=== PATIENT | female | born 1980 | race Caucasian/White ===

== ENCOUNTER 2017-05-24 09:37 | Emergency (ER) | payer OTHER, SELFPAY ==
[2017-05-24 09:37] VITALS: BP 115/62; PULSE 90; RESP 22; TEMP 36.8; O2SAT 100
[2017-05-24 10:36] LABS: Blood Gas Specimen Type VEN; Time Given 1025; VBG BASE EXCESS 8 mmol/L (-1.0-3.5); VBG Bicarbonate 32 mmol/L (22-26); VBG Oxygen Content 33 mmol/L (23-33); VBG PO2 19 mmHg (25-40); VBG SO2 31 % (50-70); VBG pCO2 45.2 mmHg (41-51); VBG pH 7.46 (7.32-7.42)
[2017-05-24 10:38] LABS: Anion Gap 8 (5-15); BUN 16 mg/dL (7-18); BUN/Creat Ratio 16.5 RATIO (10-20); Chloride 105 mmol/L (98-107); Creatinine, Serum 0.97 mg/dL (0.55-1.02); EST Glomerular Filtration Rate 68 mL/min (>60); Est Glom Filt Rate - Afr Amer 83 mL/min (>60); Estimated Creatinine Clearance 55.75 ml/min; Glucose 140 mg/dL (74-106); Potassium 3.9 mmol/L (3.5-5.1); Sodium Level 140 mmol/L (136-145)
--- NOTE | 2017-05-24 10:40 | CPS ---
VENOUS BLOOD GAS
--- NOTE | 2017-05-24 13:19 | ED.DCSUM_ITS ---
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 She presents today with similar symptoms. She denies headache. She denies visual, ocular or auditory symptoms. She denies any chest pain. She denies any vomiting or diarrhea. She denies any urologic symptoms. She is on calcium supplements. Physical Examination: Patient appears anxious. Bilateral's Chvostek sign. Heart is regular without murmur, gallop or rub. Lungs are clear to auscultation with good movement bilaterally. Reflexes are brisk with 4 beats of clonus at the ankle. No Babinski sign. Motor is 5/5 and sensations intact. Cranial nerves II through XII are intact. Please read written note for complete detail. Test Results: Respiratory therapy was unable to obtain ABG. Patient refused any additional attempts. A VBG was obtained which reveals alkalosis. Electrode panel was obtained as well as albumin and is remarkable for a slight elevation glucose of 140. Emergency Department Course and Treatment: Will obtain an ABG to determine if patient has respiratory alkalosis and hyperventilating versus hypocalcemia. Treatment Plan: Patient symptoms have resolved. She was informed of her lab results. Disposition: Home with home-going instructions for hyperventilation syndrome Impression: Hyperventilation syndrome History of thyroidectomy secondary to papillary carcinoma This note was generated with [employer] dictation software. It may contain incorrect words, spelling, and punctuation that were not noted in review of the chart prior to signing ED Disposition - Plan for ED Patient: Disposition: Home or Assisted Living Chief Complaint: Abd Pain Instructions: ED Hyperventilation Syndrome Referrals: Nela Hemphill MD [Primary Care Provider] - As Needed
[2017-05-24 13:37] VITALS: BP 115/70; PULSE 75; PULSE 85; RESP 14; O2SAT 96
== END 2017-05-24 13:39 | disposition home or self-care (01) ==
PROVIDERS: Emergency Provider Emergency Medicine; Family Provider Family Medicine; PCP Family Medicine
DX: F45.8 Other somatoform disorders (principal); E89.0 Postprocedural hypothyroidism; E87.3 Alkalosis; R73.9 Hyperglycemia, unspecified; Z79.899 Other long term (current) drug therapy
CPT/HCPCS: 80048; 82040; 82803; 99285; J7030; A4216

== ENCOUNTER → 2017-07-03 09:50 | Outpatient (CLI) | payer OTHER, SELFPAY ==
[2017-07-03 10:31] LABS: Free T3 2.9 pg/mL (2.18-3.98); T4 Free Direct 0.94 ng/dL (0.76-1.46); Thyroid Stim Hormone (TSH) 0.07 uIU/mL (0.358-3.74)
[2017-07-10 08:16] LABS: HPV HC, High Risk Negative (Negative)
[2017-07-10 08:17] LABS: HPV Reflexed? YES, CHARGE PATIENT
== END ==
PROVIDERS: Family Provider Family Medicine; PCP Obstetrics & Gynecology; Visit Provider Internal Medicine Endocrinology, Diabetes & Metabolism
DX: C73 Malignant neoplasm of thyroid gland (principal)
CPT/HCPCS: 36415; 84439; 84443; 84481; 87624; 88175; G0145

== ENCOUNTER → 2017-08-23 09:58 | Outpatient (CLI) | payer OTHER, SELFPAY ==
[2017-08-23 10:47] LABS: Absolute Lymphocyte Count 1.17 X10^3/ul (0.83-4.51); Absolute Neutrophil Count 1.1 X10^3/uL (2.0-7.7); Basophil# 0.02 X10^3/uL; Basophil% 0.8 % (0-1); Eosinophil# 0.08 X10^3/uL; Eosinophils% 3.1 % (0-5); Hematocrit 42.4 % (37-47); Hemoglobin 14.2 g/dl (12.0-15.0); Lymphocyte # 1.17 X10^3/ul (4.0); Lymphocyte % 45.5 % (19-41); Mean Corp Hgb Conc 33.5 g/gl (32-36); Mean Corpuscular Hgb 30.3 pg (27.0-32.0); Mean Corpuscular Volume 90.4 fL (81-99); Monocyte# 0.24 X10^3/uL; Monocyte% 9.3 % (0-10); Neutrophil # 1.05 X10^3/uL (2.7-7.7); Neutrophil % 40.9 % (47-70); Platelet Count 217 K/mm3 (150-450); RBC Distribution Width CV 13.1 % (11.6-14.6); Red Blood Count 4.69 M/mm3 (4.2-5.4); White Blood Count 2.6 K/mm3 (4.4-11.0)
[2017-08-23 10:55] LABS: POSITIVE COUNT NO; POSITIVE DIFFERENTIAL NO; POSITIVE MORPHOLOGY NO
[2017-08-23 11:16] LABS: Vitamin D,25 Hydroxy 54.8 ng/mL (29.95-100.01)
[2017-08-23 11:27] LABS: ALB/GLOB Ratio 1.1 RATIO (0.9-2.4); AST(SGOT) 26 U/L (15-37); Alanine Aminotransfer ALT/SGPT 28 U/L (13-56); Albumin, Serum 3.9 g/dL (3.2-5.0); Alkaline Phosphatase 84 U/L (45-117); Anion Gap 5 (5-15); BUN 11 mg/dL (7-18); Calcium,Total 8.9 mg/dL (8.5-10.1); Chloride 103 mmol/L (98-107); EST Glomerular Filtration Rate 66 mL/min (>60); Est Glom Filt Rate - Afr Amer 80 mL/min (>60); Free T3 3.2 pg/mL (2.18-3.98); Globulin 3.4 g/dL (2.2-4.2); Glucose 83 mg/dL (74-106); Potassium 4.1 mmol/L (3.5-5.1); Protein, Total 7.3 g/dL (6.4-8.2); Sodium Level 139 mmol/L (136-145); T4 Free Direct 1.27 ng/dL (0.76-1.46); Thyroid Stim Hormone (TSH) 0.13 uIU/mL (0.358-3.74)
== END ==
PROVIDERS: Family Provider Family Medicine; PCP Family Medicine; Visit Provider Internal Medicine Endocrinology, Diabetes & Metabolism
DX: C73 Malignant neoplasm of thyroid gland (principal)
CPT/HCPCS: 36415; 80053; 82306; 84439; 84443; 84481; 85025

== ENCOUNTER → 2017-10-29 16:59 | Outpatient (CLI) | payer OTHER, SELFPAY ==
[2017-10-29 18:50] LABS: Free T3 3.2 pg/mL (2.18-3.98); T4 Free Direct 0.82 ng/dL (0.76-1.46); Thyroid Stim Hormone (TSH) 0.15 uIU/mL (0.358-3.74)
== END ==
PROVIDERS: Family Provider Family Medicine; PCP Family Medicine; Visit Provider Internal Medicine Endocrinology, Diabetes & Metabolism
DX: R73.03 Prediabetes (principal)
CPT/HCPCS: 36415; 84439; 84443; 84481

== ENCOUNTER 2017-11-06 15:50 | Emergency (ER) | payer OTHER, MEDICAID, SELFPAY ==
[2017-11-06 15:51] VITALS: BP 137/83; PULSE 112; RESP 18; TEMP 37; O2SAT 100; BMI 22.5
--- NOTE | 2017-11-06 16:33 | ED.DCSUM_ITS ---
History of Present Illness Chief Complaint: Abd Pain Informant: Patient Onset: Today Context: Onset with activity - lifting boxes, Sudden Onset Quality: sore/ache Location: umbilicus Current Severity: Mild Maximum Severity: Severe Worsened by: lifting Relieved by: lying down here in ER Associated Symptoms: nausea Narrative: Patient has a known hernia in her umbilicus, but she was hoping to wait until next year to get it repaired. She had it bulge out again today and simultaneously be acutely painful along with nausea after lifting a box at work 2 hrs [employer]. She could not get it to go back in with lying down at work. - Past Medical History (1) Status post total thyroidectomy Status: Chronic (2) Papillary carcinoma of thyroid Status: Suspected Past Medical History - Allergies and Home Meds Allergies/Adverse Reactions: Allergies No Known Allergies Allergy (Verified 11/06/17 15:50) Primary Care Physician: Nela Hemphill MD [Primary Care Provider] - Surgical History: tonsillectomy, - - section ?3. Thyroidectomy. Smoking Status: Former smoker Drugs: None - Family History Maternal Family History: Reports: COPD, Heart Disease Paternal Family History: Reports: No pertinent history Review of Systems All systems negative except as indicated Gastrointestinal: Reports: Abdominal pain, Nausea Physical Exam Vital Signs/Narrative: Vital Signs Temp Pulse Resp BP Pulse Ox 11/06/17 15:51 98.6 F 112 H 18 137/83 H 100 Inital Vital Signs reviewed: Yes General: Well nourished, Well developed, - - Well-appearing, NAD Head: Normocephalic, Atraumatic Cardiovascular: Regular rate, Regular rhythm, No murmurs Respiratory: No distress, CTA bilaterally, Chest nontender Abdomen: Soft, Nondistended, Normal bowel sounds, Tender - Very mild at umbilicus, where there is a palpable defect but no hernia or overlying erythema.. Negative for: Guarding, Rebound tenderness Skin: Normal color, No rash Neurological: Alert, Oriented x3, Cranial nerves II-XII grossly intact, Normal Strength, Normal Sensation, Normal Gait Psychological: Normal affect Diagnostic/Tx/Re-eval - Medical Decision Making Patient basically feels almost back to normal now. She states it is just a little sore and feels nothing like when the hernia was there. We discussed techniques to try at home if the bulge recurs before returning to the ER, but she is welcome to return if she is unable to get back in. Otherwise advised to follow-up with surgery as an outpatient. She plans to. She also asks for a note for work to restrict her lifting. I think that is reasonable. ED Disposition - Plan for ED Patient: Disposition: Home or Assisted Living Chief Complaint: Abd Pain Diagnosis: Umbilical hernia Instructions: Having Hernia Surgery: Patch Repair Referrals: Nela Hemphill MD [Primary Care Provider] - Noel Goodman MD [STAFF PHYSICIAN] - (or surgeon of your choice -- call for appt)
== END 2017-11-06 16:48 | disposition home or self-care (01) ==
LOC: ED 16:44
PROVIDERS: Emergency Provider Emergency Medicine; Family Provider Family Medicine; PCP Family Medicine
DX: K42.9 Umbilical hernia without obstruction or gangrene (principal); R11.0 Nausea; E89.0 Postprocedural hypothyroidism; Z87.891 Personal history of nicotine dependence; Z79.899 Other long term (current) drug therapy
CPT/HCPCS: 99282

== ENCOUNTER 2017-11-11 12:28 | Day surgery (SDC) | payer OTHER, MEDICAID, SELFPAY ==
[2017-11-11 13:02] VITALS: BP 108/69; PULSE 56; RESP 18; TEMP 36.9; O2SAT 100; BMI 22.3
[2017-11-11 13:54] LABS: Thyroid Stim Hormone (TSH) 0.17 uIU/mL (0.358-3.74)
[2017-11-11] MEDS: Cefazolin 2 GM in 0.9% Normal Saline 100 ML IV (15:07)
[2017-11-11] MEDS: Bupiv/Epi 0.5% Mpf 30 ML Vial (15:15)
--- NOTE | 2017-11-11 15:40 | PCM.DC.HER ---
Discharge Diet: Light diet - advance as tolerated Discharge Activity: Return to Normal Activity, May Not Drive - while taking narcotic pain meds., May Shower - with the bandage in place 1-2 days after surgery. Lifting Restrictions: 20 pounds for 2 weeks. Additional Activity Instructions:: Climbing stairs is fine, walking is encouraged. Sitting in bed may be uncomfortable. Sitting up using your lateral muscles (sitting up sideways) is usually more comfortable. Do not drive, work heavy equipment of sign legal documents for 24 hours. Pain medications may cause nausea, you should typically eat light foods as you take your pain medications. Pain medications may also cause constipation. If you have difficulty with this, discuss with your doctor. Call your doctor if your incision/area has: Continuous Slow Oozing, Sudden Increased Bleeding, Increased Pain/ Swelling, Increased Redness, Foul Smelling Discharge Call your doctor if you observe: Fever of 101 or Higher Suture Line Care: Avoid Pulling/Pushing, Avoid Pinching/Bending Change Dressing in (Days):: 3 - Leave steri-strips for 1 week. May protect with a guaze bandaid. Cleanse incision/area with: Keep Dressing Clean & Dry Allergies/Adverse Reactions: Allergies No Known Allergies Allergy (Verified 11/08/17 15:11) Medications to take at Discharge Levothyroxine [Synthroid] 50 mcg PO DAILY 11/06/17 Liothyronine Sodium [Cytomel] 5 mcg PO DAILY 11/06/17 polyethylene glycol 3350 17 gram oral powder packet 17 g PO QDAY 11/08/17 sennosides 8.6 mg-docusate sodium 50 mg tablet 1 tab PO BID PRN 11/08/17 Hydrocodone/Acetaminophen [[place] 5-325 Tablet] 1 - 2 each PO Q4H PRN PRN 7 Days #30 tablet 11/11/17 The following prescriptions were given: Hydrocodone/Acetaminophen [[place] 5-325 Tablet] 1 - 2 each PO Q4H PRN PRN 7 Days #30 tablet PRN Reason: Pain Primary Care Physician: Nela Hemphill MD [Primary Care Provider] - Test Results: Test results from this visit will be discussed in further detail at your follow-up appointment, if applicable. Please Follow Up With: Noel Goodman MD When: Please call to schedule 2 week follow up appointment. [phone]
--- NOTE | 2017-11-11 15:41 | PCM.OPRPT ---
Problem List (1) Umbilical hernia without obstruction and without gangrene Status: Acute Report of Operation Date of Procedure: 11/11/17 Pre-Operative Diagnosis: Umbilical hernia Post-Operative Diagnosis: Same Surgery/Procedure Performed:: Umbilical hernia repair Specimen's removed: None Description of Procedure: The patient was brought back to the operating room and MAC anesthesia was induced. The abdomen was prepped and draped in usual sterile fashion. A curvilinear incision was marked over the umbilicus and injected with lidocaine and Marcaine. Next the incision was made with a scalpel and this was deepened to the level of the anterior fascia. A hemostat was used to surround the umbilical stalk and a scalpel was used to remove it from the abdominal fascia. Next the hernia was identified and reduced. The hernia only measured 0.6 cm in diameter. This was closed with three 0 PDS sutures in an interrupted fashion. The umbilical stalk was then sutured back to the anterior fascia wall with a 3-0 Vicryl suture. Next the cavity was irrigated and suctioned dry. The incision was closed with interrupted 3-0 Vicryl sutures, Steri-Strips, and bandage. The patient tolerated the procedure well was taken to PACU in stable condition.
--- NOTE | 2017-11-11 15:44 | OP.PCM_ITS ---
Problem List (1) Umbilical hernia without obstruction and without gangrene Status: Acute Report of Operation Date of Procedure: 11/11/17 Pre-Operative Diagnosis: Umbilical hernia Post-Operative Diagnosis: Same Surgery/Procedure Performed:: Umbilical hernia repair Specimen's removed: None Description of Procedure: The patient was brought back to the operating room and MAC anesthesia was induced. The abdomen was prepped and draped in usual sterile fashion. A curvilinear incision was marked over the umbilicus and injected with lidocaine and Marcaine. Next the incision was made with a scalpel and this was deepened to the level of the anterior fascia. A hemostat was used to surround the umbilical stalk and a scalpel was used to remove it from the abdominal fascia. Next the hernia was identified and reduced. The hernia only measured 0.6 cm in diameter. This was closed with three 0 PDS sutures in an interrupted fashion. The umbilical stalk was then sutured back to the anterior fascia wall with a 3- 0 Vicryl suture. Next the cavity was irrigated and suctioned dry. The incision was closed with interrupted 3-0 Vicryl sutures, Steri-Strips, and bandage. The patient tolerated the procedure well was taken to PACU in stable condition.
[2017-11-11 15:45] VITALS: BP 103/80; BP 108/69; PULSE 77; RESP 16; TEMP 36.2; O2SAT 100
[2017-11-11 15:50] VITALS: BP 108/69; BP 98/56; PULSE 66; RESP 16; O2SAT 98
[2017-11-11 15:55] VITALS: BP 100/66; BP 108/69; PULSE 69; RESP 16; O2SAT 100
[2017-11-11 16:00] VITALS: BP 108/69; BP 96/64; PULSE 55; RESP 16; TEMP 36.7; O2SAT 100
[2017-11-11] MEDS: HYDROcodone Bitartrate/Apap 5/325 Tablet PO (16:32)
[2017-11-11 17:32] VITALS: BP 108/69
== END 2017-11-11 17:37 | disposition home or self-care (01) ==
LOC: SDC 12:29 → AC 12:30
PROVIDERS: Family Provider Family Medicine; PCP Family Medicine; Visit Provider Surgery
PROC: (CPT 49585; principal; 2017-11-11 14:15)
DX: K42.9 Umbilical hernia without obstruction or gangrene (principal); K64.9 Unspecified hemorrhoids; E78.00 Pure hypercholesterolemia, unspecified; R73.03 Prediabetes; K21.9 Gastro-esophageal reflux disease without esophagitis; F32.9 Major depressive disorder, single episode, unspecified; F41.9 Anxiety disorder, unspecified; Z79.899 Other long term (current) drug therapy; Z85.850 Personal history of malignant neoplasm of thyroid; Z87.891 Personal history of nicotine dependence; Z86.718 Personal history of other venous thrombosis and embolism; Z87.19 Personal history of other diseases of the digestive system
CPT/HCPCS: 00830; 49585; 36415; 84443; J7120

== ENCOUNTER → 2018-01-25 10:34 | Outpatient (CLI) | payer OTHER, MEDICAID, SELFPAY ==
[2018-01-25 11:22] LABS: Hemoglobin A1c 5.5 % (4.2-6.3)
[2018-01-25 11:41] LABS: ALB/GLOB Ratio 1.1 RATIO (0.9-2.4); AST(SGOT) 21 U/L (15-37); Alanine Aminotransfer ALT/SGPT 21 U/L (13-56); Albumin, Serum 3.9 g/dL (3.2-5.0); Alkaline Phosphatase 85 U/L (45-117); Anion Gap 7 (5-15); BUN 14 mg/dL (7-18); BUN/Creat Ratio 14.2 RATIO (10-20); Calcium,Total 8.6 mg/dL (8.5-10.1); Chloride 102 mmol/L (98-107); Cholesterol 241 mg/dL (200); Creatinine, Serum 0.98 mg/dL (0.55-1.02); EST Glomerular Filtration Rate 67 mL/min (>60); Est Glom Filt Rate - Afr Amer 81 mL/min (>60); Free T3 4.6 pg/mL (2.18-3.98); Globulin 3.4 g/dL (2.2-4.2); Glucose 83 mg/dL (74-106); High Density Lipoprotein 100 mg/dL; Potassium 3.9 mmol/L (3.5-5.1); Protein, Total 7.3 g/dL (6.4-8.2); Sodium Level 137 mmol/L (136-145); T4 Free Direct 0.98 ng/dL (0.76-1.46); Thyroid Stim Hormone (TSH) 0.23 uIU/mL (0.358-3.74); Triglycerides 41 mg/dL; Very Low Density Lipoprotein 8 mg/dL (5-40)
[2018-01-28 14:51] LABS: Thyroglobulin Antibody < 1.0 IU/mL (0.0-0.9); Thyroid Peroxidase AB 10 IU/mL (0-34)
== END ==
PROVIDERS: Family Provider Family Medicine; PCP Family Medicine; Referring Provider Internal Medicine Endocrinology, Diabetes & Metabolism; Visit Provider Internal Medicine Endocrinology, Diabetes & Metabolism
DX: C73 Malignant neoplasm of thyroid gland (principal); E78.5 Hyperlipidemia, unspecified
CPT/HCPCS: 36415; 80053; 80061; 83036; 84439; 84443; 84481; 86376; 86800

== ENCOUNTER → 2018-07-07 15:50 | Outpatient (CLI) | payer OTHER, SELFPAY ==
[2018-07-11 13:29] LABS: HPV Reflexed? NOT INDICATED
== END ==
PROVIDERS: Family Provider Family Medicine; PCP Family Medicine; Visit Provider Obstetrics & Gynecology
DX: Z12.4 Encounter for screening for malignant neoplasm of cervix (principal)
CPT/HCPCS: 88175; G0145

== ENCOUNTER → 2019-01-17 12:01 | Outpatient (CLI) | payer MEDICAID, SELFPAY ==
[2019-01-17 12:39] LABS: Absolute Lymphocyte Count 1.22 X10^3/uL (0.83-4.51); Absolute Neutrophil Count 1.9 X10^3/uL (2.0-7.7); Basophil# 0.04 X10^3/uL; Basophil% 1.1 % (0-1); Eosinophil# 0.08 X10^3/uL; Eosinophils% 2.3 % (0-5); Hematocrit 42.8 % (37-47); Hemoglobin 13.9 g/dL (12.0-15.0); Lymphocyte # 1.22 X10^3/ul (4.0); Lymphocyte % 34.9 % (19-41); Mean Corp Hgb Conc 32.5 g/dL (32-36); Mean Corpuscular Hgb 29.7 pg (27.0-32.0); Mean Corpuscular Volume 91.5 fL (81-99); Mean Platelet Vol. 10.6 fl (6.2-12.0); Monocyte# 0.26 X10^3/uL; Monocyte% 7.4 % (0-10); NRBC Flagged by Analyzer 0 % (0-5); Neutrophil # 1.89 X10^3/uL (2.7-7.7); Platelet Count 221 K/mm3 (150-450); RBC Distribution Width CV 13.3 % (11.6-14.6); RBC Distribution Width SD 45.1 fl (35.1-43.9); Red Blood Count 4.68 M/mm3 (4.2-5.4); White Blood Count 3.5 K/mm3 (4.4-11.0)
[2019-01-17 12:42] LABS: Erythrocyte Sedimentation Rate 10 mm/hr (0-20)
[2019-01-17 13:11] LABS: Homocysteine 7.4 umol/L (3.2-10.7)
[2019-01-17 13:13] LABS: CRP 3.39 mg/L (0.0-3.0); Rheumatoid Factor < 10.0 IU/mL (<15)
[2019-01-19 09:20] LABS: Vitamin B12 469 pg/mL (211-911)
[2019-01-19 20:52] LABS: ANTINUCLEAR ANTIBODIES DIRECT Negative (Negative)
== END ==
PROVIDERS: Family Provider Family Medicine; PCP Family Medicine; Referring Provider Internal Medicine Endocrinology, Diabetes & Metabolism; Visit Provider Internal Medicine Endocrinology, Diabetes & Metabolism
DX: R22.9 Localized swelling, mass and lump, unspecified (principal); E03.9 Hypothyroidism, unspecified
CPT/HCPCS: 36415; 82607; 82746; 83090; 85025; 85652; 86038; 86140; 86431

== ENCOUNTER → 2019-01-30 15:02 | Outpatient (CLI) | payer MEDICAID, SELFPAY ==
--- NOTE | 2019-01-30 15:07 | ECHOD_ITS ---
Reason For Study: PALPITATIONS, FATIGUE Procedure This was a 2D Doppler, Color Flow transthoracic echocardiogram. Exam performed in department. Left Ventricle Normal LV size. Left ventricular systolic function is normal. The estimated ejection fraction is 60 %. Normal diastology for age. No regional wall motion abnormalities noted. Right Ventricle Normal RV size. Normal systolic function. Atria Normal left atrium. Normal right atrium. Mitral Valve Normal mitral valve. Tricuspid Valve Normal tricuspid valve. Mild tricuspid valve insufficiency. Pulmonary artery systolic pressure is 22 mmHg. Aortic Valve Normal aortic valve. Trisinus/trileaflet aortic valve. Pulmonic Valve Normal pulmonic valve. Great Vessels Normal aortic root. The pulmonary artery is normal size. Normal inferior vena cava. Pericardium/Pleural No pericardial effusion. MMode/2D Measurements & Calculations LVIDd: 4.3 cm IVSd: 0.70 cm Ao root diam: 2.4 cm LVIDs: 2.6 cm LVPWd: 0.83 cm RVDd: 2.8 cm FS: 39.6 % LAV(MOD-bp): 43.1 ml LA A4 area: 14.8 cm2 LA dimension(2D): 3.1 cm LAV(MOD-bp) Indexed: 28.5 ml/m2 LAV(MOD-sp2): 41.7 ml LAV(MOD-sp4): 41.7 ml RA A4 area: 11.8 cm2 Time Measurements MV dec time: 0.18 sec Doppler Measurements & Calculations MV E max simon: 103.9 cm/sec Lat Peak E' Simon: 13.6 cm/sec Med Peak E' Simon: 10.7 cm/sec MV A max simon: 74.7 cm/sec E/E' lat: 7.6 E/E' med: 9.7 MV E/A: 1.4 Ao V2 max: 112.6 cm/sec LV V1 max: 93.4 cm/sec PA V2 max: 76.9 cm/sec Ao max P.1 mmHg LV V1 max P.5 mmHg TR max simon: 215.2 cm/sec TR max P.6 mmHg Interpretation Summary Normal LV size. Left ventricular systolic function is normal. The estimated ejection fraction is 60 %. Normal diastology for age. Pulmonary artery systolic pressure is 22 mmHg. Ordering Physician: Tierra York Referring Physician: Jose Breen Performed By: Mireille Barkley RDCS, RVT
== END ==
PROVIDERS: Family Provider Family Medicine; PCP Family Medicine; Referring Provider Internal Medicine Endocrinology, Diabetes & Metabolism; Visit Provider Internal Medicine Endocrinology, Diabetes & Metabolism
DX: R00.2 Palpitations (principal); R53.83 Other fatigue
CPT/HCPCS: 93306

== ENCOUNTER → 2019-11-07 11:35 | Outpatient (CLI) | payer MEDICAID, SELFPAY ==
[2019-11-07 12:38] LABS: Hemoglobin A1c 5.7 % (3.8-5.6)
[2019-11-07 12:40] LABS: ALB/GLOB Ratio 1.2 RATIO (0.9-2.4); AST(SGOT) 14 U/L (15-37); Alanine Aminotransfer ALT/SGPT 14 U/L (13-56); Alkaline Phosphatase 73 U/L (45-117); Anion Gap 3 (5-15); BUN 8 mg/dL (7-18); BUN/Creat Ratio 9.1 RATIO (10-20); Calcium,Total 8.9 mg/dL (8.5-10.1); Chloride 107 mmol/L (98-107); Cholesterol 243 mg/dL (200); Creatinine, Serum 0.88 mg/dL (0.55-1.02); EST Glomerular Filtration Rate 76 mL/min (>60); Est Glom Filt Rate - Afr Amer 92 mL/min (>60); Globulin 3.4 g/dL (2.2-4.2); Glucose 89 mg/dL (74-106); High Density Lipoprotein 77 mg/dL; Potassium 4.2 mmol/L (3.5-5.1); Protein, Total 7.4 g/dL (6.4-8.2); Sodium Level 138 mmol/L (136-145); Thyroid Stim Hormone (TSH) 0.72 uIU/mL (0.358-3.74); Triglycerides 84 mg/dL; Very Low Density Lipoprotein 17 mg/dL (5-40)
[2019-11-09 08:17] LABS: Vitamin D,25 Hydroxy 55.4 ng/mL
[2019-11-09 16:08] LABS: Thyroid Peroxidase AB < 9 IU/mL (0-34)
[2019-11-09 17:35] LABS: Thyroglobulin Antibody < 1.0 IU/mL (0.0-0.9)
[2019-11-09 21:11] LABS: Anti-Thyroglobulin AB < 1.0 IU/mL (0.0-0.9); Thyroglobulin, Serum Qt. 0.1 ng/mL (1.5-38.5); Thyroid Peroxidase AB < 9 IU/mL (0-34)
== END ==
PROVIDERS: PCP Family Medicine; Referring Provider Internal Medicine Endocrinology, Diabetes & Metabolism; Visit Provider Internal Medicine Endocrinology, Diabetes & Metabolism
DX: C73 Malignant neoplasm of thyroid gland (principal); E78.00 Pure hypercholesterolemia, unspecified; E03.9 Hypothyroidism, unspecified; E55.9 Vitamin D deficiency, unspecified; E28.319 Asymptomatic premature menopause
CPT/HCPCS: 36415; 80053; 80061; 82306; 83036; 84432; 84439; 84443; 84481; 86376; 86800

== ENCOUNTER → 2020-01-15 08:19 | Outpatient (CLI) | payer MEDICAID, SELFPAY | PROVIDERS: PCP Nurse Practitioner Primary Care; Referring Provider Internal Medicine Endocrinology, Diabetes & Metabolism; Visit Provider Internal Medicine Endocrinology, Diabetes & Metabolism | DX: C73 Malignant neoplasm of thyroid gland (principal); E03.9 Hypothyroidism, unspecified; R60.9 Edema, unspecified; E55.9 Vitamin D deficiency, unspecified; E28.319 Asymptomatic premature menopause | CPT/HCPCS: 36415; 82533 ==

== ENCOUNTER 2020-01-20 15:45 | Emergency (ER) | payer MEDICAID, SELFPAY ==
[2020-01-20 15:46] VITALS: BP 131/68; PULSE 70; RESP 16; TEMP 36.3; O2SAT 100; BMI 27.2
--- NOTE | 2020-01-20 15:55 | VDLE_ITS ---
Reason For Study: Pain RIGHT GSV is normal. CFV is compressible, spontaneous, phasic, competent and demonstrates normal augmentation. FV is compressible, spontaneous, phasic, competent and demonstrates normal augmentation. POP V is compressible, spontaneous, phasic, competent and demonstrates normal augmentation. T/P Trunk is compressible. PTV is compressible. RT PerV is compressible. Thrombus filled varicose vein noted in the right medial knee area. Procedure This is a venous duplex using B-mode, color flow and spectral Doppler. Exam performed portable in ED. A preliminary report was called and/or faxed to [facility]. Interpretation Summary There is no evidence of right lower extremity deep vein thrombosis. Superficial thrombophlebitis right medial knee varicose vein Patent and compressible right great saphenous vein Ordering Physician: London Keller Referring Physician: Noelle Munson Performed By: Aleah Up RVT
--- NOTE | 2020-01-20 16:02 | ED.DCSUM_ITS ---
History of Present Illness Chief Complaint: Lower Extremity Injury Informant: Patient Onset: Days Context: Gradual Onset Timing: Continuous Current Severity: Moderate Maximum Severity: Moderate Narrative: The patient is a 39-year-old female that presents to the emergency department with right posterior knee pain. She states she has a history of varicosities. She noticed a palpable lump behind her knee. She states that she had this a few years ago. She actually saw vascular surgery. She was told that she may need a vein stripping in the future. She states she noticed it recur. She talked to her primary care, but they cannot get her in to be seen. She states that she was told to come to the emergency department. She denies any chest pain or shortness of breath. She denies any recent immobilization. Prior similar symptoms: Yes Recent Illness/Hospitalization: No Past Medical History - Allergies and Home Meds Allergies/Adverse Reactions: Allergies No Known Allergies Allergy (Verified 01/20/20 15:46) Primary Care Physician: Noelle Weber NP, DIRECTOR OF LOSS PREVENTION-C [Primary Care Provider] - Prior records reviewed: Yes Past Medical History: - - Thyroid disease, varicosities Surgical History: tonsillectomy, - - section ?3. Thyroidectomy. Smoking Status: Former smoker - Family History Maternal Family History: Family History (Last Updated 11/08/17 @ 13:51 by Lorrie Trevino) Mother Heart disease Hypertension Asthma Thyroid disorder Sister Thyroid disorder Father Colon cancer Family History: Reports: COPD, Heart Disease Paternal Family History: Family History (Last Updated 11/08/17 @ 13:51 by Lorrie Trevino) Mother Heart disease Hypertension Asthma Thyroid disorder Sister Thyroid disorder Father Colon cancer Family History: Reports: No pertinent history Review of Systems General: Denies: Chills, Fever, Sweats Eyes: Denies: Visual changes - bilaterally, Diplopia ENT: Denies: Rhinorrhea, Sore throat Cardiovascular: Denies: Chest pain, Palpitations Respiratory: Denies: Dyspnea, Cough, Dyspnea on exertion Gastrointestinal: Denies: Abdominal pain, Nausea, Vomiting, Diarrhea, Melena, Hematochezia Genitourinary: Denies: Dysuria, Hematuria, Frequency Musculoskeletal: Denies: Back pain, Extremity Pain Skin: Denies: Rash, Wounds Neurological: Denies: Headache, Weakness, Numbness Physical Exam Vital Signs/Narrative: Vital Signs Temp Pulse Resp BP Pulse Ox 01/20/20 15:46 97.3 F L 70 16 131/68 H 100 Inital Vital Signs reviewed: Yes General: Well nourished, Well developed, No Acute Distress Head: Normocephalic, Atraumatic Eyes: Perrl, EOMI ENT: Moist mucous membranes, No rhinorrhea Neck: Supple, Nontender Cardiovascular: Regular rate, Regular rhythm, No murmurs Respiratory: No distress, CTA bilaterally, Chest nontender Abdomen: Soft, Nontender, Nondistended, Normal bowel sounds Back: Nontender, Normal Inspection Extremities: No edema, Tenderness Skin: Normal color, No rash Neurological: Alert, Oriented x3, Cranial nerves II-XII grossly intact, Normal Strength, Normal Sensation Psychological: Normal affect, Normal Mood Diagnostic/Tx/Re-eval - Medical Decision Making The patient presents with a painful varicosity. Ultrasound was obtained of the lower extremity. There is no evidence of DVT. There is evidence of the superficial varicosity with thrombus. The patient has had this multiple times. She has no DVT, evidence of cellulitis, or vascular compromise. She will continue warm compresses and follow-up with vascular surgery as she had before. The patient will be discharged home. Impression 1. Right lower extremity varicosity ED Disposition - Plan for ED Patient: Instructions: ED Veins Varicose Referrals: Km Pollack MD [STAFF PHYSICIAN] -
[2020-01-20 16:52] VITALS: RESP 18
== END 2020-01-20 16:53 | disposition home or self-care (01) ==
LOC: ED 16:24
PROVIDERS: Emergency Provider Emergency Medicine; PCP Nurse Practitioner Primary Care
DX: I83.811 Varicose veins of right lower extremity with pain (principal); M25.561 Pain in right knee; E07.9 Disorder of thyroid, unspecified; Z79.899 Other long term (current) drug therapy; Z87.891 Personal history of nicotine dependence
CPT/HCPCS: 93971; 99281; 99283

== ENCOUNTER → 2020-01-23 10:06 | Outpatient (CLI) | payer MEDICAID, SELFPAY ==
--- NOTE | 2020-01-23 10:07 | BI_ITS ---
MAMMOGRAPHY - BILATERAL SCREENING REASON FOR EXAM: Female, 39 years old. Routine annual screening examination. PERTINENT HISTORY: Non-contributory. Past history of thyroid cancer treated with radiation. TECHNIQUE: Digital bilateral breast cristian (3D mammographic acquisition) in the CC and MLO projections. 2-D mediolateral oblique (MLO) and craniocaudad (CC) views of both breasts were obtained. CAD: Full Field Digital Mammography with Computer Added Detection was performed. COMPARISON: None. Baseline examination. FINDINGS: Breast Composition: There are no dominant masses or suspicious calcifications. No other significant abnormalities are identified. BI/SCREEN MAMM (CAD) W/CRISTIAN BILAT IMPRESSION: Negative screening mammogram. Yearly followup mammogram recommended. (A) ASSESSMENT CATEGORY: BIRADS Category 1: Negative. A letter regarding these results will be sent to the patient by the facility within 30 days. Approximately 10% of breast cancers are not detected by mammography. A normal mammogram should not delay biopsy of a clinically suspicious abnormality. [id number] Electronically Signed: Candido Farris, at 9:30 EDT , Service support ,
== END ==
LOC: OPBI 07-27 00:28
PROVIDERS: PCP Nurse Practitioner Primary Care; Referring Provider Nurse Practitioner Primary Care; Visit Provider Nurse Practitioner Primary Care
DX: Z12.31 Encounter for screening mammogram for malignant neoplasm of breast (principal); Z85.850 Personal history of malignant neoplasm of thyroid; Z92.3 Personal history of irradiation
CPT/HCPCS: 77063; 77067

== ENCOUNTER → 2020-02-23 | Outpatient (CLI) | payer MEDICAID, SELFPAY ==
[2020-02-27 10:31] LABS: HPV APTIMA, High Risk Negative (Negative); HPV Reflexed? YES, CHARGE PATIENT
== END | disposition home or self-care (01) ==
LOC: LABSPEC 15:33
PROVIDERS: PCP Nurse Practitioner Primary Care; Visit Provider Student in an Organized Health Care Education/Training Program
DX: Z12.4 Encounter for screening for malignant neoplasm of cervix (principal)
CPT/HCPCS: 87624; 88175; G0145

== ENCOUNTER → 2020-03-21 15:23 | Outpatient (CLI) | payer MEDICAID, SELFPAY ==
[2020-03-21 18:22] LABS: LDH 177 U/L (84-246)
[2020-03-21 18:25] LABS: hCG Titer Quant., Serum 5 mIU/mL (1-3)
[2020-03-23 15:23] LABS: Cancer Antigen 125 5.6 U/mL (0.0-38.1); Carcinoembryonic Antigen 2.8 ng/mL (0.0-4.7)
== END ==
PROVIDERS: PCP Nurse Practitioner Primary Care; Visit Provider Student in an Organized Health Care Education/Training Program
DX: N83.209 Unspecified ovarian cyst, unspecified side (principal)
CPT/HCPCS: 36415; 82378; 83615; 84702; 86301; 86304

== ENCOUNTER → 2020-03-22 15:49 | Outpatient (CLI) | payer MEDICAID, SELFPAY ==
--- NOTE | 2020-03-22 15:52 | BD_ITS ---
STUDY: DUAL ENERGY X-RAY ABSORPTIOMETRY / DXA REASON FOR EXAM: Female, 39 years old. 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 COMPARISON: None. FINDINGS: Lumbar Spine (L1-L4): g/cm2 (1.014) / T-score (-1.4) / Z-score (-1.4) Findings are suggestive of osteopenia with a low fracture risk. Left Femur Total: g/cm2 (0.805) / T-score (-1.6) / Z-score (-1.4) Left Femoral Neck: g/cm2 (0.840) / T-score (-1.4) / Z-score (-1.0) Right Femur Total: g/cm2 (0.814) / T-score (-1.5) / Z-score (-1.3) Right Femoral Neck: g/cm2 (0.780) / T-score (-1.9) / Z-score (-1.4) BD/Dexa Bone Density Study IMPRESSION: The patient is considered osteopenic as outlined below according to World Arjun Organization (WHO) criteria with a moderate fracture risk. Reference Information: The T-score is the number of standard deviations above or below the standard which is normal for young adults at their peak bone mineral density. The World Health Organization (WHO) interprets the T-scores as follows: Above -1 Normal bone density Between -1 and -2.5 Osteopenia Equal to / or below -2.5 Osteoporosis As a practical clinical guideline, osteopenia may be graded as follows: Mild -1 through -1.5 Moderate -1.6 through -2.0 Severe -2.1 through -2.4 The Z-score is the number of standard deviations above or below age-matched controls. A Z-score of less than -1.5 would be considered abnormal. References: 1. NIH Osteoporosis and Related Bone Diseases www osteo.org 2. International Society for Clinical Densitometry www iscd.org 3. National Osteoporosis Foundation www nof.org Electronically Signed: Candido Farris, at 12:36 EST , Service support ,
== END ==
PROVIDERS: PCP Nurse Practitioner Primary Care; Referring Provider Student in an Organized Health Care Education/Training Program; Visit Provider Student in an Organized Health Care Education/Training Program
DX: Z13.820 Encounter for screening for osteoporosis (principal); M85.80 Other specified disorders of bone density and structure, unspecified site
CPT/HCPCS: 77080

== ENCOUNTER → 2020-05-07 10:21 | Outpatient (CLI) | payer MEDICAID, SELFPAY ==
[2020-05-07 11:08] LABS: Hemoglobin A1c 5.5 % (3.8-5.6)
[2020-05-07 11:32] LABS: AST(SGOT) 20 U/L (15-37); Alanine Aminotransfer ALT/SGPT 18 U/L (13-56); Albumin, Serum 3.5 g/dL (3.2-5.0); Alkaline Phosphatase 77 U/L (45-117); Anion Gap 5 (5-15); BUN 13 mg/dL (7-18); Calcium,Total 8.6 mg/dL (8.5-10.1); Chloride 106 mmol/L (98-107); EST Glomerular Filtration Rate 65 mL/min (>60); Est Glom Filt Rate - Afr Amer 79 mL/min (>60); Globulin 3.4 g/dL (2.2-4.2); Glucose 88 mg/dL (74-106); Potassium 4.1 mmol/L (3.5-5.1); Protein, Total 6.9 g/dL (6.4-8.2); Sodium Level 140 mmol/L (136-145); T4 Free Direct 0.79 ng/dL (0.76-1.46); Thyroid Stim Hormone (TSH) 0.44 uIU/mL (0.358-3.74)
== END ==
PROVIDERS: PCP Nurse Practitioner Primary Care; Referring Provider Internal Medicine Endocrinology, Diabetes & Metabolism; Visit Provider Internal Medicine Endocrinology, Diabetes & Metabolism
DX: C73 Malignant neoplasm of thyroid gland (principal); E03.9 Hypothyroidism, unspecified; E28.319 Asymptomatic premature menopause; E55.9 Vitamin D deficiency, unspecified; R60.9 Edema, unspecified
CPT/HCPCS: 36415; 80053; 83036; 84439; 84443; 84481

== ENCOUNTER → 2020-09-13 13:34 | Outpatient (CLI) | payer MEDICAID, SELFPAY ==
--- NOTE | 2020-09-13 13:39 | VDLE_ITS ---
Reason For Study: Varicose veins RIGHT LEFT CFV is compressible, spontaneous, phasic, CFV is compressible, spontaneous, phasic, competent and demonstrates normal competent, and demonstrates normal augmentation. augmentation. FV is compressible, spontaneous, phasic, FV is compressible, spontaneous, phasic, competent and demonstrates normal competent and demonstrates normal augmentation. augmentation. POP V is compressible, spontaneous, phasic, POP V is compressible, spontaneous, phasic, competent and demonstrates normal competent and demonstrates normal augmentation. augmentation. T/P Trunk is compressible. T/P Trunk is compressible. PTV is compressible. PTV is compressible. RT PerV is compressible. LT PerV is compressible. SFJ is INCOMPETENT and measures 0.79 x 0.75 SFJ is INCOMPETENT and measures 0.73 x 0.65 cm. cm. GSV proximal thigh measures 0.69 x 0.69 cm. GSV proximal thigh measures 0.36 x 0.39 cm. GSV at knee measures 0.58 x 0.56 cm. GSV at knee measures 0.21 x 0.19 cm. GSV INCOMPETENT throughout for greater than GSV INCOMPETENT throughout for greater than 0.5 seconds. 0.5 seconds. SSV at junction is competent and measures ASV from junction is INCOMPETENT for greater 0.18 x 0.18 cm. than 0.5 seconds and measures 0.23 x 0.24 cm. Procedure SSV proximal calf is competent and measures This is a venous duplex using B-mode, color 0.11 x 0.11 cm. flow and spectral Doppler. Exam performed in department. VL/Venous Duplex US - Prince Extrem Interpretation Summary Bilateral legs with no DVT or SVT noted. Right GSV 7 mm with reflux throughout. Left GSV 4 mm with reflux throughout. Left ASV 2.5 mm with reflux at the junction. Ordering Physician: Km Pollack Referring Physician: Noelle Weber Performed By: Aleah Up RVT
== END ==
PROVIDERS: PCP Nurse Practitioner Primary Care; Referring Provider Surgery Vascular Surgery; Visit Provider Surgery Vascular Surgery
DX: M79.89 Other specified soft tissue disorders (principal); I83.813 Varicose veins of bilateral lower extremities with pain; E78.00 Pure hypercholesterolemia, unspecified; I34.1 Nonrheumatic mitral (valve) prolapse; E07.9 Disorder of thyroid, unspecified; M79.606 Pain in leg, unspecified
CPT/HCPCS: 93970

== ENCOUNTER → 2020-11-19 10:02 | Outpatient (CLI) | payer MEDICAID, SELFPAY ==
[2020-11-19 11:20] LABS: AST(SGOT) 15 U/L (15-37); Alanine Aminotransfer ALT/SGPT 18 U/L (13-56); Albumin, Serum 3.7 g/dL (3.2-5.0); Alkaline Phosphatase 85 U/L (45-117); Anion Gap 3 (5-15); BUN 10 mg/dL (7-18); BUN/Creat Ratio 11.8 RATIO (10-20); Chloride 105 mmol/L (98-107); Cholesterol 238 mg/dL (200); Creatinine, Serum 0.84 mg/dL (0.55-1.02); EST Glomerular Filtration Rate 79 mL/min (>60); Est Glom Filt Rate - Afr Amer 95 mL/min (>60); Free T3 3.3 pg/mL (2.18-3.98); Globulin 3.6 g/dL (2.2-4.2); Glucose 81 mg/dL (74-106); High Density Lipoprotein 84 mg/dL; Potassium 4.2 mmol/L (3.5-5.1); Protein, Total 7.3 g/dL (6.4-8.2); Sodium Level 137 mmol/L (136-145); T4 Free Direct 0.77 ng/dL (0.76-1.46); Thyroid Stim Hormone (TSH) 0.29 uIU/mL (0.358-3.74); Triglycerides 58 mg/dL; Very Low Density Lipoprotein 12 mg/dL (5-40)
[2020-11-19 11:55] LABS: Hemoglobin A1c 5.6 % (3.8-5.6)
[2020-11-21 08:45] LABS: Vitamin D,25 Hydroxy 51.5 ng/mL
== END ==
PROVIDERS: PCP Nurse Practitioner Primary Care; Referring Provider Internal Medicine Endocrinology, Diabetes & Metabolism; Visit Provider Internal Medicine Endocrinology, Diabetes & Metabolism
DX: C73 Malignant neoplasm of thyroid gland (principal); E03.9 Hypothyroidism, unspecified; E78.00 Pure hypercholesterolemia, unspecified; I80.9 Phlebitis and thrombophlebitis of unspecified site; R73.03 Prediabetes
CPT/HCPCS: 36415; 80053; 80061; 82306; 83036; 84439; 84443; 84481

== ENCOUNTER → 2021-01-28 09:14 | Outpatient (CLI) | payer MEDICAID, SELFPAY ==
[2021-01-28 10:36] LABS: Free T3 3.5 pg/mL (2.18-3.98); T4 Free Direct 0.72 ng/dL (0.76-1.46); Thyroid Stim Hormone (TSH) 0.63 uIU/mL (0.358-3.74)
== END ==
PROVIDERS: PCP Nurse Practitioner Primary Care; Referring Provider Internal Medicine Endocrinology, Diabetes & Metabolism; Visit Provider Internal Medicine Endocrinology, Diabetes & Metabolism
DX: E03.9 Hypothyroidism, unspecified (principal); E78.5 Hyperlipidemia, unspecified; C73 Malignant neoplasm of thyroid gland; I80.9 Phlebitis and thrombophlebitis of unspecified site; R73.03 Prediabetes
CPT/HCPCS: 36415; 84439; 84443; 84481

== ENCOUNTER 2021-03-08 12:08 | Emergency (ER) | payer MEDICAID, SELFPAY ==
[2021-03-08 12:09] VITALS: BP 123/82; PULSE 73; RESP 19; TEMP 37.3; O2SAT 93; BMI 28.4
--- NOTE | 2021-03-08 12:47 | RAD_ITS ---
STUDY: X-RAY CHEST REASON FOR EXAM: Female, 40 years old. Cough. Fevers and chills. Headache. TECHNIQUE: Single AP portable view of the chest. COMPARISON: None. FINDINGS: Patchy bibasilar infiltrates worse at the right lung base. There is no demonstrated pleural abnormality. Normal size heart. Normal mediastinum and naman. Normal visualized pulmonary arteries. Normal visualized aortic arch and descending thoracic aorta. Normal visualized thoracic spine. Normal visualized ribs, clavicles, and shoulders. There is no demonstrated abnormality of the visualized soft tissue structures of the upper abdomen. RAD/Chest 1 View (Portable) IMPRESSION: Patchy bibasilar pulmonary infiltrates worse at the right lung base. Electronically Signed: Candido Farris MD at 14:00 EST , Service support ,
--- NOTE | 2021-03-08 12:55 | EX.ED.VIS.UR ---
HPI HPI - URI History of Present Illness Chief Complaint: Shortness of Breath Informant: patient Onset/Context/Timing Onset: Days Context: Gradual Onset Timing: Continuous Current Severity: Mild Maximum Severity: Mild Associated Symptoms Associated Symptoms: Positive for Nasal Congestion, Myalgias, Nausea, Diarrhea, Shortness of Breath and Nonproductive cough; Negative for Hemoptysis and Productive Cough Narrative Narrative: 40-year-old female history of prior thyroid cancer and unvaccinated. Has had symptoms since 1120 so she is day 10 or so now. States has had cough fever chills. The last several days has developed nausea vomiting and diarrhea. She was tested Covid positive on Saturday before which should be around February 28. Her test was done at the [facility]. Prior similar symptoms: No Recent Illness/Hospitalization: No ROS ROS ED ROS Narrative Cough, fever and chills. Myalgias. Nausea, vomiting diarrhea. Review of Systems ROS Unobtainable: Denies due to encephalopathy Constitutional Constitutional ED: Reports chills and fever(s) Eyes Eyes: Denies change in vision ENT ENT ED: Reports rhinorrhea; Denies ear pain or sore throat Cardiovascular Cardiovascular: Denies chest pain or palpitations Respiratory/Chest Respiratory/Chest: Reports cough and dyspnea Gastrointestinal Gastrointestinal: Reports diarrhea, nausea and vomiting; Denies abdominal pain, constipation or melena Genitourinary Genitourinary ED: Denies dysuria Musculoskeletal Musculoskeletal: Reports myalgias Integumentary Denies rash Neurologic Neurologic: Denies headache(s) Psychiatric Psychiatric: Denies depression Endocrine Endocrinology: Denies polyuria Hematologic/Lymphatic Hematologic/Lymphatic: Denies easy bruising Allergic/Immunologic Allergic/Immunologic ED: Denies urticaria PFSH PFSH Medical History Abdominal pain Acid reflux Anxiety Depression Fatigue Hemorrhoids Hypocalcemia Hypokalemia Papillary carcinoma of thyroid Thyroid cancer Thyroid disorder Home Medications thyroid (pork) 30 mg PO DAILY 01/20/20 [History Last Taken Unknown] dexamethasone [Decadron] 6 mg PO DAILY 10 Days #10 tab 03/08/21 [Rx Last Taken Unknown] promethazine 25 mg PO Q6H PRN #10 tab 03/08/21 [Rx Last Taken Unknown] Allergy/AdvReac Type Severity Reaction Status Date / Time No Known Allergies Allergy Verified 03/08/21 12:09 Family History Mother Heart disease Hypertension Asthma Thyroid disorder Sister Thyroid disorder Father Colon cancer Surgical History Hx of section Hx of tonsillectomy Hx of tooth extraction Hx of umbilical hernia repair Status post total thyroidectomy Social History Smoking Status: Never smoker second hand exposure: No alcohol intake: never substance use type: does not use caffeine: No what type of physical activity do you participate in: none frequency: does not exercise seatbelt use: always EXAM Physical Exam Narrative Exam Narrative: 38-year-old female no acute distress vital signs stable afebrile pulse ox 93% on room air no hypoxia. HEENT exam dry mucous memories. Neck nontender no lymphadenopathy. Lungs clear to auscultation bilaterally. Heart regular rhythm no murmur rate about 75. Abdomen soft nontender normal bowel sounds no peritoneal signs. Moving all 4 extremities. Calves are nontender without edema or cords. Back nontender. Neurologically she is awake and alert with no focal motor deficits. Const Vital Signs: 03/08/21 12:09 03/08/21 13:38 Temperature 99.2 F H Temperature Source Temporal Pulse Rate 73 Respiratory Rate 19 H Respiratory Effort Normal Non-Labored Respiratory Depth Normal Respiratory Pattern Normal Blood Pressure 123/82 H Blood Pressure Mean 95 Pulse Ox 93 Oxygen Delivery Method Room Air Positive well nourished and well developed; Negative for obese, cachectic or contractures General Appearance ED: well developed and NAD; Negative for cachectic, contractures, cyanotic, diaphoretic or pallor Nutritional Appearance: Negative for cachectic or obese HEENT Reports dry mucous membranes normocephalic and atraumatic; Negative for scalp tenderness Face and Sinus: Negative for sinus tenderness, maxillary instability or facial tenderness Mouth ED: Yes dry mucous membranes Mouth: dry mucous membranes Eyes PERRL and EOMs intact bilaterally Neck no lymphadenopathy, supple, no meningeal signs and no JVD General: Negative for anterior neck swelling or lymphadenopathy Resp normal respiratory effort and clear to auscultation bilaterally Auscultation: Negative for rales, rhonchi or wheezes Cardio S1 normal heart sound, S2 normal heart sound and no murmurs Rate: regular rate Rhythm: regular rhythm GI non-tender, non-distended and no masses Auscultation: normoactive bowel sounds Palpation: soft; Negative for tender or guarding Back/Spine no CVA tenderness and normal ROM General Back: Negative for CVA tenderness Cervical Spine: Negative for cervical spine tenderness Thoracic Spine / Upper Back: Negative for thoracic spinal tenderness Extremity normal to inspection and full ROM General Extremety ED: Negative for cyanosis or tenderness General Extremity: Negative for cyanosis Neuro oriented x3 and CN's II-XII intact bilaterally Sensorium / Orientation: alert, oriented to person, oriented to place and oriented to time; Negative for orientation impaired, lethargic or stuporous Motor Exam: strength 5/5 throughout Psych mental status grossly normal Attitude: No agitated Mood & Affect: Negative for depressed or tearful Skin General Skin Exam: Negative for jaundice or pallor Lesions: no lesions Rashes: no rashes MDM MDM MDM Narrative Medical decision making narrative: 40-year-old unvaccinated female Covid +8 days ago. Has had symptoms for now about 11 days. Also nausea and vomiting. Will be treated with IV fluids due to clinically she looks dehydrated screening labs and x-ray being obtained. IV Phenergan for nausea. Repeat exam patient doing well at 3:36 PM patient doing well. Initially she should be treated with IV fluids but they could not get the IV so she drank p.o. fluids here. She denies and her family member went over all of her test results. She will be started on Decadron at home and also Phenergan for home. Lab Data Attestation: I reviewed the patient's lab results. Lab results narrative: CBC White count of 5 hemoglobin 15. Platelets 157. Electrolytes unremarkable gap 11 normal BUN and creatinine glucose of 95. Chest x-ray consistent with Covid pneumonitis. Labs: Laboratory Results - last 24 hr 03/08/21 03/08/21 13:33 13:33 WBC 5.1 RBC 5.33 Hgb 15.8 H Hct 46.1 MCV 86.5 MCH 29.6 MCHC 34.3 RDW Std Deviation 42.1 RDW Coeff of Clay 13.3 Plt Count 157 MPV 11.4 Immature Gran % (Auto) 0.400 Neut % (Auto) 78.7 H Lymph % (Auto) 14.2 L [place] % (Auto) 6.7 Eos % (Auto) 0.0 Baso % (Auto) 0.0 Absolute Neuts (auto) 4.0 Absolute Lymphs (auto) 0.72 L Nucleated RBC % 0 Sodium 134 L Potassium 3.9 Chloride 102 Carbon Dioxide 21.0 Anion Gap 11 BUN 12 Creatinine 0.90 Estim Creat Clear Calc 79.30 Est GFR (MDRD) Af Amer 88 Est GFR (MDRD) Non-Af 73 BUN/Creatinine Ratio 13.3 Glucose 95 Calcium 8.3 L Radiography Diagnostic Testing: Clinical Impression(s) from Imaging Studies Chest X-Ray 03/08/21 12:47 IMPRESSION: Patchy bibasilar pulmonary infiltrates worse at the right lung base. Electronically Signed: Candido Farris MD at 14:00 EST , Service support , Portable, single view interpreted by myself and radiologist shows patchy infiltrates bilaterally consistent with Covid pneumonitis. Discharge Plan Triage Chief Complaint: Shortness of Breath ED Provider: Adam Kay Dx/Rx/DC Orders Clinical Impression: COVID-19, Nausea, vomiting and diarrhea, Acute dehydration Instructions: Human Coronaviruses Prescriptions: New dexamethasone [Decadron] 6 mg tablet 6 mg PO DAILY 10 Days Qty: 10 RF: 0 promethazine 25 mg tablet 25 mg PO Q6H PRN (Reason: nausea and vomiting) Qty: 10 RF: 0 No Action thyroid (pork) 15 MG tablet 30 mg PO DAILY RF: 0 Primary Care Provider: Noelle Weber NP Referrals: Noelle Weber NP, SECURITY FLEX OFFICER-C [Primary Care Provider] - 1 Week if not improving Activity Restrictions/Additional Instructions: Plenty of fluids and rest. Alternate Tylenol and Motrin for fever and body aches. Decadron daily for the Covid. Phenergan as needed for nausea. Return if feeling a lot worse. Disposition Disposition: Home, Self Care
--- NOTE | 2021-03-08 13:38 | ED.RN ---
rn attempted an iv x1 time, 2 other rns attempted with no success. dr alvarez notified at this time.
[2021-03-08 13:41] LABS: Absolute Lymphocyte Count 0.72 X10^3/uL (0.83-4.51); Hematocrit 46.1 % (37-47); Hemoglobin 15.8 g/dL (12.0-15.0); Lymphocyte # 0.72 X10^3/ul (0.83-4.51); Lymphocyte % 14.2 % (19-41); Mean Corp Hgb Conc 34.3 g/dL (32-36); Mean Corpuscular Hgb 29.6 pg (27.0-32.0); Mean Corpuscular Volume 86.5 fL (81-99); Mean Platelet Vol. 11.4 fl (6.2-12.0); Monocyte# 0.34 X10^3/uL; Monocyte% 6.7 % (0-10); NRBC Flagged by Analyzer 0 % (0-5); Neutrophil % 78.7 % (47-70); Platelet Count 157 K/mm3 (150-450); RBC Distribution Width CV 13.3 % (11.6-14.6); RBC Distribution Width SD 42.1 fl (35.1-43.9); Red Blood Count 5.33 M/mm3 (4.2-5.4); White Blood Count 5.1 K/mm3 (4.4-11.0)
[2021-03-08] MEDS: proMETHazine 25 MG/ML Syringe 12.5 MG IV (13:43)
[2021-03-08 13:58] LABS: Anion Gap 11 (5-15); BUN 12 mg/dL (7-18); BUN/Creat Ratio 13.3 RATIO (10-20); Calcium,Total 8.3 mg/dL (8.5-10.1); Chloride 102 mmol/L (98-107); EST Glomerular Filtration Rate 73 mL/min (>60); Est Glom Filt Rate - Afr Amer 88 mL/min (>60); Glucose 95 mg/dL (74-106); Potassium 3.9 mmol/L (3.5-5.1); Sodium Level 134 mmol/L (136-145)
[2021-03-08] MEDS: dexAMETHasone 4 MG Tablet 6 MG PO (15:59)
[2021-03-08 16:01] VITALS: BP 99/65; PULSE 86; RESP 14; O2SAT 99
== END 2021-03-08 16:02 | disposition home or self-care (01) ==
PROVIDERS: Emergency Provider Emergency Medicine; PCP Nurse Practitioner Primary Care
DX: U07.1 COVID-19 (principal); Z28.3 Underimmunization status; E86.0 Dehydration; R11.2 Nausea with vomiting, unspecified; R19.7 Diarrhea, unspecified; Z85.850 Personal history of malignant neoplasm of thyroid
CPT/HCPCS: 71045; 80048; 85025; 96374; 99283; A4216

== ENCOUNTER 2021-04-21 11:44 | Outpatient (CLI) | payer MEDICAID, SELFPAY ==
--- NOTE | 2021-04-21 12:15 | BI_ITS ---
MAMMOGRAPHY - BILATERAL SCREENING REASON FOR EXAM: Female, 40 years old. Routine annual screening examination. PERTINENT HISTORY: Non-contributory. The patient has a history of thyroid cancer. TECHNIQUE: Digital bilateral breast cristian (3D mammographic acquisition) in the CC and MLO projections. 2-D mediolateral oblique (MLO) and craniocaudad (CC) views of both breasts were obtained. CAD: Full Field Digital Mammography with Computer Added Detection was performed. COMPARISON: Comparison is made with prior examination in 01/23/2020. FINDINGS: Breast Composition: The breasts are heterogeneously dense, which may obscure small masses. There are no dominant masses or suspicious calcifications. Stable small benign-appearing bilateral axillary lymph nodes. No other significant abnormalities are identified. There has been no significant change since the prior study. BI/SCRN MAMM (CAD)W/CRISTIAN BILAT IMPRESSION: Stable bilateral screening mammogram. Yearly follow-up mammogram recommended. (A) ASSESSMENT CATEGORY: BIRADS Category 2: Benign. A letter regarding these results will be sent to the patient by the facility within 30 days. Approximately 10% of breast cancers are not detected by mammography. A normal mammogram should not delay biopsy of a clinically suspicious abnormality. [id number] Electronically Signed: Candido Farris MD at 13:17 EST , Service support ,
== END 2021-04-21 23:59 | disposition short-term general hospital (02) ==
LOC: OPBI 12:13
PROVIDERS: PCP Nurse Practitioner Primary Care; Referring Provider Nurse Practitioner Primary Care; Visit Provider Nurse Practitioner Primary Care
DX: Z12.31 Encounter for screening mammogram for malignant neoplasm of breast (principal)
CPT/HCPCS: 77063; 77067

== ENCOUNTER 2021-05-20 10:55 | Outpatient (CLI) | payer MEDICAID, SELFPAY ==
[2021-05-20 11:48] LABS: Hemoglobin A1c 5.3 % (3.8-5.6)
[2021-05-20 12:07] LABS: ALB/GLOB Ratio 1.1 RATIO (0.9-2.4); AST(SGOT) 19 U/L (15-37); Alanine Aminotransfer ALT/SGPT 21 U/L (13-56); Albumin, Serum 3.7 g/dL (3.2-5.0); Alkaline Phosphatase 72 U/L (45-117); Anion Gap 4 (5-15); BUN 8 mg/dL (7-18); BUN/Creat Ratio 8.8 RATIO (10-20); Calcium,Total 8.7 mg/dL (8.5-10.1); Chloride 108 mmol/L (98-107); Creatinine, Serum 0.91 mg/dL (0.55-1.02); EST Glomerular Filtration Rate 72 mL/min (>60); Est Glom Filt Rate - Afr Amer 87 mL/min (>60); Estradiol 19.4 pg/mL; Follicle Stimulating Hormone 107.6 mIU/mL; Free T3 4.1 pg/mL (2.18-3.98); Globulin 3.4 g/dL (2.2-4.2); Glucose 89 mg/dL (74-106); Luteinizing Hormone 63.1 mIU/mL; Potassium 4.1 mmol/L (3.5-5.1); Protein, Total 7.1 g/dL (6.4-8.2); Sodium Level 141 mmol/L (136-145); T4 Free Direct 0.76 ng/dL (0.76-1.46); Thyroid Stim Hormone (TSH) 0.15 uIU/mL (0.358-3.74)
== END 2021-05-20 23:59 | disposition home or self-care (01) ==
LOC: LAB 10:58
PROVIDERS: PCP Nurse Practitioner Primary Care; Visit Provider Internal Medicine Endocrinology, Diabetes & Metabolism
DX: E03.9 Hypothyroidism, unspecified (principal); C73 Malignant neoplasm of thyroid gland; E78.5 Hyperlipidemia, unspecified; I80.9 Phlebitis and thrombophlebitis of unspecified site; R73.03 Prediabetes
CPT/HCPCS: 36415; 80053; 82670; 83001; 83002; 83036; 84439; 84443; 84481

== ENCOUNTER → 2021-12-29 | Outpatient (CLI) | payer MEDICAID, SELFPAY ==
[2021-12-29 11:04] LABS: Vitamin D,25 Hydroxy 45.6 ng/mL
[2021-12-29 11:13] LABS: ALB/GLOB Ratio 1.1 RATIO (0.9-2.4); AST(SGOT) 17 U/L (15-37); Alanine Aminotransfer ALT/SGPT 20 U/L (13-56); Albumin, Serum 3.7 g/dL (3.2-5.0); Alkaline Phosphatase 85 U/L (45-117); Anion Gap 8 (5-15); BUN 9 mg/dL (7-18); BUN/Creat Ratio 10.2 RATIO (10-20); Calcium,Total 8.9 mg/dL (8.5-10.1); Chloride 104 mmol/L (98-107); Cholesterol 272 mg/dL (200); Creatinine, Serum 0.88 mg/dL (0.55-1.02); EST Glomerular Filtration Rate 75 mL/min (>60); Est Glom Filt Rate - Afr Amer 90 mL/min (>60); Globulin 3.5 g/dL (2.2-4.2); Glucose 82 mg/dL (74-106); High Density Lipoprotein 87 mg/dL; Protein, Total 7.2 g/dL (6.4-8.2); Sodium Level 140 mmol/L (136-145); T4 Free Direct 0.79 ng/dL (0.76-1.46); Triglycerides 79 mg/dL; Very Low Density Lipoprotein 16 mg/dL (5-40)
[2021-12-29 11:27] LABS: Hemoglobin A1c 5.7 % (3.8-5.6)
== END | disposition home or self-care (01) ==
LOC: LAB 08:56
PROVIDERS: PCP Nurse Practitioner Primary Care; Referring Provider Internal Medicine Endocrinology, Diabetes & Metabolism; Visit Provider Internal Medicine Endocrinology, Diabetes & Metabolism
DX: E03.9 Hypothyroidism, unspecified (principal); C73 Malignant neoplasm of thyroid gland; E78.00 Pure hypercholesterolemia, unspecified; R73.03 Prediabetes; E55.9 Vitamin D deficiency, unspecified
CPT/HCPCS: 36415; 80053; 80061; 82306; 83036; 84439; 84443

== ENCOUNTER → 2022-06-15 | Outpatient (CLI) | payer MEDICAID, SELFPAY ==
[2022-06-15 11:16] LABS: Hemoglobin A1c 5.3 % (3.8-5.6)
[2022-06-15 11:23] LABS: Vitamin D,25 Hydroxy 50.5 ng/mL
[2022-06-15 11:32] LABS: ALB/GLOB Ratio 0.9 RATIO (0.9-2.4); AST(SGOT) 17 U/L (15-37); Alanine Aminotransfer ALT/SGPT 19 U/L (13-56); Albumin, Serum 3.6 g/dL (3.2-5.0); Alkaline Phosphatase 87 U/L (45-117); Anion Gap 6 (5-15); BUN 10 mg/dL (7-18); BUN/Creat Ratio 11.6 RATIO (10-20); Chloride 107 mmol/L (98-107); Cholesterol 240 mg/dL (200); Creatinine, Serum 0.86 mg/dL (0.55-1.02); EST Glomerular Filtration Rate 77 mL/min (>60); Est Glom Filt Rate - Afr Amer 93 mL/min (>60); Free T3 4.3 pg/mL (2.18-3.98); Globulin 3.8 g/dL (2.2-4.2); Glucose 95 mg/dL (74-106); High Density Lipoprotein 79 mg/dL; Potassium 4.6 mmol/L (3.5-5.1); Protein, Total 7.4 g/dL (6.4-8.2); Sodium Level 141 mmol/L (136-145); T4 Free Direct 0.75 ng/dL (0.76-1.46); Thyroid Stim Hormone (TSH) 0.95 uIU/mL (0.358-3.74); Triglycerides 91 mg/dL; Very Low Density Lipoprotein 18 mg/dL (5-40)
== END | disposition home or self-care (01) ==
PROVIDERS: PCP Nurse Practitioner Primary Care; Visit Provider Internal Medicine Endocrinology, Diabetes & Metabolism
DX: E03.9 Hypothyroidism, unspecified (principal); C73 Malignant neoplasm of thyroid gland; E78.00 Pure hypercholesterolemia, unspecified; R73.03 Prediabetes; E55.9 Vitamin D deficiency, unspecified
CPT/HCPCS: 36415; 80053; 80061; 82306; 83036; 84439; 84443; 84481

== ENCOUNTER 2022-09-21 08:45 | Emergency (ER) | payer SELFPAY ==
[2022-09-21 08:46] VITALS: BP 136/93; PULSE 79; RESP 18; TEMP 36.2; O2SAT 100; BMI 30.3
--- NOTE | 2022-09-21 09:14 | EX.ED.DYSGE1 ---
HPI History of Present Illness Chief Complaint: Dizziness Informant: patient Onset/Context/Timing Onset: Yesterday Context: Sudden Onset Timing: Continuous Quality: Spinning Location: Head Worsened by: Moving her head or eyes Relieved by: Closing her eyes and remaining still Narrative Narrative: Patient presents with dizziness that began last night. Patient states it started when she was going to bed. Patient states she woke up today and noted some spinning sensation. Patient states it is worse whenever she moves her eyes or her head. Patient states this feels similar to prior episodes of vertigo. Patient states she was started on meloxicam recently and is unsure if this has anything to do with it. Patient denies any tinnitus or hearing changes. Patient denies any headaches. Patient does admit to some nausea and started with some diarrhea today. Patient also admits to some subjective chills. [facility] Medical History (Updated 09/21/22 @ 11:[address] George Shah DO) Abdominal pain Acid reflux Anxiety Depression Fatigue Fibromyalgia Hemorrhoids Hypercholesterolemia Hypocalcemia Hypokalemia Papillary carcinoma of thyroid Plantar fasciitis Thyroid cancer Thyroid disorder Home Medications thyroid (pork) 15 mg tablet 30 mg PO DAILY 01/20/20 [History Last Taken Unknown] dexamethasone 6 mg tablet (Decadron) 6 mg PO DAILY 10 days #10 tabs 03/08/21 [Rx Last Taken Unknown] promethazine 25 mg tablet 25 mg PO Q6H PRN nausea and vomiting #10 tabs 03/08/21 [Rx Last Taken Unknown] diazepam 2 mg tablet 2 mg PO TID PRN PRN Vertigo #10 TABLETS 09/21/22 [Rx Last Taken Unknown] Allergy/AdvReac Type Severity Reaction Status Date / Time No Known Allergies Allergy Verified 09/21/22 08:46 Family History Mother Heart disease Hypertension Asthma Thyroid disorder Sister Thyroid disorder Father Colon cancer Surgical History (Updated 09/21/22 @ 09:[address] George Shah DO) H/O: hysterectomy Hx of section Hx of tonsillectomy Hx of tooth extraction Hx of umbilical hernia repair Status post total thyroidectomy Social History Smoking Status: Never smoker second hand exposure: No alcohol intake: never substance use type: does not use caffeine: No what type of physical activity do you participate in: none frequency: does not exercise seatbelt use: always ROS ROS ED Constitutional Constitutional ED: Reports chills and subjective; Denies fever(s) Eyes Eyes: Denies blurry vision or change in vision ENT ENT ED: Denies rhinorrhea or sore throat Cardiovascular Cardiovascular: Denies chest pain or palpitations Respiratory/Chest Respiratory/Chest: Denies cough or dyspnea Gastrointestinal Gastrointestinal: Reports diarrhea and nausea; Denies vomiting Genitourinary Genitourinary ED: Denies dysuria or hematuria Musculoskeletal Musculoskeletal: Denies back pain or neck pain Integumentary Denies abscess or rash Neurologic Neurologic: Denies headache(s) or weakness Allergic/Immunologic Allergic/Immunologic ED: Denies mouth swelling or urticaria EXAM Physical Exam Const Vital Signs: 09/21/22 08:46 09/21/22 09:39 09/21/22 11:42 Temperature 97.1 F L Temperature Source Temporal Pulse Rate 79 71 Pulse Rate [Lying] 81 Pulse Rate [Sitting (for 1 minute prior to obtaining)] 80 Pulse Rate [Standing (for 1 minute prior to obtaining)] 80 Respiratory Rate 18 14 Blood Pressure 136/93 H 134/104 H Blood Pressure [Lying] 129/70 H Blood Pressure [Sitting (for 1 minute prior to obtaining)] 133/78 H Blood Pressure [Standing (for 1 minute prior to obtaining)] 114/43 L Blood Pressure Mean 107 Blood Pressure Mean [Lying] 89 Blood Pressure Mean [Sitting (for 1 minute prior to obtaining)] 96 Blood Pressure Mean [Standing (for 1 minute prior to obtaining)] 66 Pulse Ox 100 100 Oxygen Delivery Method Room Air Positive well nourished and well developed General Appearance ED: well developed HEENT Reports moist mucous membranes Eyes PERRL and EOMs intact bilaterally Eyes Narrative: There is nystagmus with lateral gaze bilaterally. This did reproduce her dizziness. Neck supple and no JVD Resp normal respiratory effort and clear to auscultation bilaterally Cardio regular rate, regular rhythm and no murmurs GI normal to inspection, nondistended, normoactive bowel sounds and non-tender Palpation: soft Extremity normal to inspection General Extremety ED: Negative for edema or tenderness General Extremity: Negative for edema Neuro oriented x3, CN's II-XII intact bilaterally and no sensory deficits noted Sensorium / Orientation: alert Motor Exam: strength 5/5 throughout Psych mental status grossly normal Skin no rashes or lesions noted MDM MDM MDM Narrative Medical decision making narrative: Differential diagnosis includes vertigo, labyrinthitis, dehydration, electrolyte abnormality, and infection. CBC will be obtained to assess for leukocytosis and anemia. Basic metabolic profile will be obtained to assess for electrolyte abnormality and renal function. Lab Data Attestation: I reviewed the patient's lab results. Lab results narrative: CBC was reviewed and was within normal limits. Basic metabolic profile was reviewed and was within normal limits. Labs: Laboratory Results - last 24 hr 09/21/22 09/21/22 09:23 09:23 WBC 4.5 RBC 4.67 Hgb 13.6 Hct 42.0 MCV 89.9 MCH 29.1 MCHC 32.4 RDW Std Deviation 44.1 H RDW Coeff of Clay 13.4 Plt Count 223 MPV 10.5 Immature Gran % (Auto) 0.400 Neut % (Auto) 63.7 Lymph % (Auto) 26.3 [place] % (Auto) 6.9 Eos % (Auto) 1.8 Baso % (Auto) 0.9 Absolute Neuts (auto) 2.9 Absolute Lymphs (auto) 1.18 Nucleated RBC % 0 Sodium 142 Potassium 4.7 Chloride 109 H Carbon Dioxide 25.0 Anion Gap 8 BUN 14 Creatinine 0.82 Estim Creat Clear Calc 92.04 Est GFR (MDRD) Af Amer 98 Est GFR (MDRD) Non-Af 81 BUN/Creatinine Ratio 17.1 Glucose 106 Calcium 9.0 Treatment and Re-Evaluation :: Patient was given IV fluids here. Patient was given a dose of Valium. Patient feels better on reevaluation. Patient was able to ambulate to the bathroom without difficulty. Patient was given a prescription for a short course of Valium. Patient was instructed to drink plenty of fluids. Patient was instructed to follow-up with her primary care physician in 5 to 7 days. Patient understood and was agreeable with the plan. All questions were answered. Discharge Plan Triage Chief Complaint: Dizziness Other Complaint: Numb/Ting Nausea/Vomiting/Diarrhea ED Provider: George Shah Dx/Rx/DC Orders Clinical Impression: Vertigo, Fibromyalgia Instructions: ED Vertigo, Unspecified Prescriptions: New diazepam [diazepam] 2 mg tablet 2 mg PO TID PRN PRN (Reason: Vertigo) Qty: 10 0RF No Action thyroid (pork) 15 MG tablet 30 mg PO DAILY dexamethasone [Decadron] 6 mg tablet 6 mg PO DAILY 10 Days Qty: 10 0RF promethazine 25 mg tablet 25 mg PO Q6H PRN (Reason: nausea and vomiting) Qty: 10 0RF Stand Alone Forms: ED Work / School Excuse Primary Care Provider: Noelle Weber NP Referrals: Noelle Weber NP, PRODUCER ASSISTANT-C [Primary Care Provider] - 5-7 Days Disposition Disposition: Home, Self Care Discharge Date/Time: 09/21/22 11:43
[2022-09-21 09:33] LABS: Absolute Lymphocyte Count 1.18 X10^3/uL (0.83-4.51); Absolute Neutrophil Count 2.9 X10^3/uL (2.0-7.7); Basophil# 0.04 X10^3/uL; Basophil% 0.9 % (0-1); Eosinophil# 0.08 X10^3/uL; Eosinophils% 1.8 % (0-5); Hemoglobin 13.6 g/dL (12.0-15.0); Lymphocyte # 1.18 X10^3/ul (0.83-4.51); Lymphocyte % 26.3 % (19-41); Mean Corp Hgb Conc 32.4 g/dL (32-36); Mean Corpuscular Hgb 29.1 pg (27.0-32.0); Mean Corpuscular Volume 89.9 fL (81-99); Mean Platelet Vol. 10.5 fl (6.2-12.0); Monocyte# 0.31 X10^3/uL; Monocyte% 6.9 % (0-10); NRBC Flagged by Analyzer 0 % (0-5); Neutrophil # 2.85 X10^3/uL (2.7-7.7); Neutrophil % 63.7 % (47-70); Platelet Count 223 K/mm3 (150-450); RBC Distribution Width CV 13.4 % (11.6-14.6); RBC Distribution Width SD 44.1 fl (35.1-43.9); Red Blood Count 4.67 M/mm3 (4.2-5.4); White Blood Count 4.5 K/mm3 (4.4-11.0)
[2022-09-21] MEDS: 0.9% Normal Saline 1,000 ML 1000 ML IV (09:34)
[2022-09-21] MEDS: diazePAM 5 MG Tablet 2.5 MG PO (09:34)
[2022-09-21 09:39] VITALS: BP 114/43; BP 129/70; BP 133/78; PULSE 80; PULSE 81
[2022-09-21 09:45] LABS: Anion Gap 8 (5-15); BUN 14 mg/dL (7-18); BUN/Creat Ratio 17.1 RATIO (10-20); Chloride 109 mmol/L (98-107); Creatinine, Serum 0.82 mg/dL (0.55-1.02); EST Glomerular Filtration Rate 81 mL/min (>60); Est Glom Filt Rate - Afr Amer 98 mL/min (>60); Estimated Creatinine Clearance 92.04 ml/min; Glucose 106 mg/dL (74-106); Potassium 4.7 mmol/L (3.5-5.1); Sodium Level 142 mmol/L (136-145)
[2022-09-21 11:42] VITALS: BP 134/104; PULSE 71; RESP 14; O2SAT 100
== END 2022-09-21 11:43 | disposition home or self-care (01) ==
PROVIDERS: Emergency Provider Emergency Medicine; PCP Nurse Practitioner Primary Care; Visit Provider Emergency Medicine
DX: R42 Dizziness and giddiness (principal); M79.7 Fibromyalgia; R19.7 Diarrhea, unspecified; E78.00 Pure hypercholesterolemia, unspecified; R11.2 Nausea with vomiting, unspecified; K21.9 Gastro-esophageal reflux disease without esophagitis; Z79.899 Other long term (current) drug therapy
CPT/HCPCS: 80048; 85025; 96360; 96361; 99284; J7030; A4216

== ENCOUNTER → 2024-04-28 | Outpatient (CLI) | payer BC, MEDICAID, SELFPAY ==
[2024-04-28 11:51] LABS: Hematocrit 44.7 % (37-47); Hemoglobin 14.4 g/dL (12.0-15.0); Mean Corp Hgb Conc 32.2 g/dL (32-36); Mean Corpuscular Hgb 29.5 pg (27.0-32.0); Mean Corpuscular Volume 91.6 fL (81-99); Mean Platelet Vol. 10.7 fl (6.2-12.0); Platelet Count 259 K/mm3 (150-450); RBC Distribution Width CV 13.6 % (11.6-14.6); RBC Distribution Width SD 46.1 fl (35.1-43.9); Red Blood Count 4.88 M/mm3 (4.2-5.4); White Blood Count 4.1 K/mm3 (4.4-11.0)
[2024-04-28 12:38] LABS: Vitamin D,25 Hydroxy 43.4 ng/mL
[2024-04-28 13:47] LABS: AST(SGOT) 12 U/L (15-37); Alanine Aminotransfer ALT/SGPT 17 U/L (13-56); Albumin, Serum 3.6 g/dL (3.2-5.0); Alkaline Phosphatase 83 U/L (45-117); Anion Gap 8 (5-15); BUN 10 mg/dL (7-18); BUN/Creat Ratio 11.3 RATIO (10-20); Chloride 107 mmol/L (98-107); Creatinine, Serum 0.89 mg/dL (0.55-1.02); EST Glomerular Filtration Rate 73 mL/min (>60); Est Glom Filt Rate - Afr Amer 89 mL/min (>60); Globulin 3.5 g/dL (2.2-4.2); Glucose 89 mg/dL (74-106); Potassium 4.4 mmol/L (3.5-5.1); Protein, Total 7.1 g/dL (6.4-8.2); Sodium Level 141 mmol/L (136-145); T4 Free Direct 0.71 ng/dL (0.76-1.46); Thyroid Stim Hormone (TSH) 0.753 uIU/mL (0.358-3.740)
== END | disposition home or self-care (01) ==
PROVIDERS: Referring Provider Internal Medicine Endocrinology, Diabetes & Metabolism; Visit Provider Internal Medicine Endocrinology, Diabetes & Metabolism
DX: C73 Malignant neoplasm of thyroid gland (principal); R63.5 Abnormal weight gain; E03.9 Hypothyroidism, unspecified; E28.319 Asymptomatic premature menopause; M85.80 Other specified disorders of bone density and structure, unspecified site
CPT/HCPCS: 36415; 80053; 82306; 84439; 84443; 84481; 85027

== ENCOUNTER → 2025-01-01 | Outpatient (CLI) | payer BC, MEDICAID, SELFPAY ==
[2025-01-01 09:56] LABS: Free T3 5.8 pg/mL (2.18-3.98)
== END | disposition home or self-care (01) ==
LOC: LAB 08:46
PROVIDERS: PCP Nurse Practitioner Primary Care; Referring Provider Internal Medicine Endocrinology, Diabetes & Metabolism; Visit Provider Internal Medicine Endocrinology, Diabetes & Metabolism
DX: C73 Malignant neoplasm of thyroid gland (principal); E03.9 Hypothyroidism, unspecified; E28.319 Asymptomatic premature menopause; M85.80 Other specified disorders of bone density and structure, unspecified site; R73.03 Prediabetes
CPT/HCPCS: 36415; 84439; 84443; 84481